=== PATIENT | male | born 1960 | race Caucasian/White ===

== ENCOUNTER 2016-10-24 08:24 | Inpatient (IN) | payer MEDICARE, MEDICAID ==
--- NOTE | 2016-10-24 08:42 | ED Physician Chart ---
Chief Complaint/HPI - Patient Information Date Seen:: 10/24/16 Time Seen:: 08:35 Chief Complaint:: Pt is intoxicated with alcohol. History of Present Illness:: Pt was brought in by ambulance for the above reason. Pt has abrasion on L cheek. Pt otherwise appears to be in no distress. Pt breathes comfortably but with strong alcoholic breaths. Pt denies any bodily pain or other injuries. Pt speaks clearly but is uncooperative; thus, H & P are limited. Allergies:: Allergies Allergy/AdvReac Type Severity Reaction Status Date / Time Penicillins Allergy Verified 10/24/16 08:35 Vitals:: see Nurse Note. Historian:: Patient Family MD/PCP:: unknown LMP:: N/A Review:: Nurse's Note Reviewed Review of Systems - Review of Systems General/Constitutional: Other (Pt does not cooperate for ROS.) Past Medical History - Past Medical History Past Medical History: No significant medical hx Family History: Other (Pt does not) Social History: Alcohol (h/o alcoholism.), Other (Pt does not cooperate to provide info on SHx.) Surgical History: other (Pt does not cooperate to provide info on Surgical Hx.) Family Medical History - Family Member Mother History Unknown: Yes Physical Exam - Physical Examination General/Constitutional: Awake, Well-developed, well-nourished, Alert, No distress Other Gen/Cons comments:: Breathes comfortably with strong alcoholic breath, speaks clearly, but is not cooperative. Head: Atraumatic Other Head comments:: except there is an approx 2x3 cm abrasive area on L cheek. Nontender. No gross deformity. no open wound or active bleeding. Eyes: Lids, conjuctiva normal, PERRL, EOMI Skin: No lymphadenopathy Other Skin comments:: see also Head exam above. ENMT: External ears, nose nl, Nasal exam nl, Oropharynx nl Neck: Nontender, Full ROM w/o pain, No nuchal rigidity, No mass, No stridor Respiratory: Nl effort/Exclusion, Clear to Auscultation, No Wheeze/Rhonchi/Rales Cardio Vascular: No murmur, gallop, rubs Other Cardio Vascular comments:: Regular rhythm with mild tachycardia. GI: No tenderness/rebounding/guarding, No organomegaly, No hernia, Normal BS's, Nondistended, No mass/bruits, No McBurney tenderness Other GI comments:: Abdomen is soft. Extremities: No tenderness or effusion, Full ROM, normal strength in all extremities, No edema, Normal digits & nails Neuro/Psych: Alert/oriented (knows his name. He is uncooperative.) Other Neuro/Psych comments:: Spontaneous movements noticed in all 4 extremities. Pt does not cooperate for full neurological exam. Labs/Radiology/EKG Results - Lab Results Results: Laboratory Tests 10/24/16 10/24/16 10/24/16 08:56 08:56 08:56 WBC 18.0 H RBC 5.93 H Hgb 17.3 Hct 52.2 H MCV 88.0 MCH 29.2 MCHC Differential 33.2 RDW 14.3 Plt Count 281 MPV 7.7 Neutrophils (Manual) 83 H Lymphocytes 6 L Monocytes 11 H Platelet Estimate ADEQUATE Platelet Morphology NORMAL RBC Morph Micro Appear NORMAL PT 9.3 L INR 0.94 PTT (Actin FS) 23.0 L Sodium 139 Potassium 3.9 Chloride 102 Carbon Dioxide 25.7 Anion Gap 15.2 BUN 7 Creatinine 0.9 Est GFR ( Amer) > 60.0 Est GFR (Non-Af Amer) > 60.0 BUN/Creatinine Ratio 7.8 Glucose 153 H Whole Bld Lactic Acid Calcium 9.4 Total Bilirubin 0.4 AST 49 H ALT 30 Alkaline Phosphatase 100 Total Protein 8.0 Albumin 4.7 Globulin 3.3 Albumin/Globulin Ratio 1.4 Urine Source Urine Color Urine Clarity Urine pH Ur Specific [place] Urine Protein Urine Glucose (UA) Urine Ketones Urine Blood Urine Nitrate Urine Bilirubin Urine Urobilinogen Ur Leukocyte Esterase Urine RBC Urine WBC Ur Epithelial Cells Urine Bacteria Hyaline Casts Fine Granular Casts Ethyl Alcohol 333 H 10/24/16 10/24/16 10:15 11:05 WBC RBC Hgb Hct MCV MCH MCHC Differential RDW Plt Count MPV Neutrophils (Manual) Lymphocytes Monocytes Platelet Estimate Platelet Morphology RBC Morph Micro Appear PT INR PTT (Actin FS) Sodium Potassium Chloride Carbon Dioxide Anion Gap BUN Creatinine Est GFR ( Amer) Est GFR (Non-Af Amer) BUN/Creatinine Ratio Glucose Whole Bld Lactic Acid 4.38 H* Calcium Total Bilirubin AST ALT Alkaline Phosphatase Total Protein Albumin Globulin Albumin/Globulin Ratio Urine Source CLEAN C Urine Color YELLOW Urine Clarity CLEAR Urine pH 5.5 Ur Specific [place] 1.025 Urine Protein 100 H Urine Glucose (UA) NEGATIVE Urine Ketones 15 H Urine Blood MODERATE H Urine Nitrate NEGATIVE Urine Bilirubin NEGATIVE Urine Urobilinogen 0.2 Ur Leukocyte Esterase NEGATIVE Urine RBC 0-2 H Urine WBC 0-2 Ur Epithelial Cells OCCASIONAL Urine Bacteria OCCASIONAL Hyaline Casts 0-2 H Fine Granular Casts 0-2 H Ethyl Alcohol Laboratory Last Values WBC 18.0 Th/cmm (4.8-10.8) H 10/24/16 08:56 RBC 5.93 Mil/cmm (4.30-5.70) H 10/24/16 08:56 Hgb 17.3 gm/dL (13.2-17.3) 10/24/16 08:56 Hct 52.2 % (39.0-49.0) H 10/24/16 08:56 MCV 88.0 fl (80-99) 10/24/16 08:56 MCH 29.2 pg (26.0-30.0) 10/24/16 08:56 MCHC Differential 33.2 pg (28.0-36.0) 10/24/16 08:56 RDW 14.3 % (11.5-20.0) 10/24/16 08:56 Plt Count 281 Th/cmm (150-400) 10/24/16 08:56 MPV 7.7 fl 10/24/16 08:56 Neutrophils (Manual) 83 % (40-80) H 10/24/16 08:56 Lymphocytes 6 % (20-50) L 10/24/16 08:56 Monocytes 11 % (2-10) H 10/24/16 08:56 Platelet Estimate ADEQUATE (NORMAL) 10/24/16 08:56 Platelet Morphology NORMAL (NORMAL) 10/24/16 08:56 RBC Morph Micro Appear NORMAL (NORMAL) 10/24/16 08:56 PT 9.3 SECONDS (9.5-11.5) L 10/24/16 08:56 INR 0.94 (0.5-1.4) 10/24/16 08:56 PTT (Actin FS) 23.0 SECONDS (26.0-38.0) L 10/24/16 08:56 Specimen Source Arterial 10/24/16 13:55 Sample Site Right Radial 10/24/16 13:55 pH 7.44 (7.35-7.45) 10/24/16 13:55 pCO2 36.0 mmHg (35.0-45.0) 10/24/16 13:55 pO2 81.0 mmHg (80.0-100.0) 10/24/16 13:55 HCO3 24.5 mmol/L (20.0-26.0) 10/24/16 13:55 Base Excess 0.6 mmol/L (-3.0-3.0) 10/24/16 13:55 O2 Saturation 96.0 % (92.0-100.0) 10/24/16 13:55 Alonso Test Positive 10/24/16 13:55 Vent Rate NA 10/24/16 13:55 Inspired O2 21 10/24/16 13:55 Tidal Volume NA 10/24/16 13:55 PEEP NA 10/24/16 13:55 Pressure (ins/psv/peep) NA 10/24/16 13:55 Critical Value LZHANG 10/24/16 13:55 Sodium 139 mEq/L (136-145) 10/24/16 08:56 Potassium 3.9 mEq/L (3.5-5.1) 10/24/16 08:56 Chloride 102 mEq/L (98-107) 10/24/16 08:56 Carbon Dioxide 25.7 mEq/L (21.0-31.0) 10/24/16 08:56 Anion Gap 15.2 (7.0-16.0) 10/24/16 08:56 BUN 7 mg/dL (7-25) 10/24/16 08:56 Creatinine 0.9 mg/dL (0.7-1.3) 10/24/16 08:56 Est GFR ( Amer) > 60.0 ml/min (>90) 10/24/16 08:56 Est GFR (Non-Af Amer) > 60.0 ml/min 10/24/16 08:56 BUN/Creatinine Ratio 7.8 10/24/16 08:56 Glucose 153 mg/dL (70-105) H 10/24/16 08:56 Whole Bld Lactic Acid 4.34 mmol/L (0.60-2.00) H* 10/24/16 13:17 Calcium 9.4 mg/dL (8.6-10.3) 10/24/16 08:56 Total Bilirubin 0.4 mg/dL (0.3-1.0) 10/24/16 08:56 AST 49 U/L (13-39) H 10/24/16 08:56 ALT 30 U/L (7-52) 10/24/16 08:56 Alkaline Phosphatase 100 U/L (34-104) 10/24/16 08:56 Total Protein 8.0 gm/dL (6.0-8.3) 10/24/16 08:56 Albumin 4.7 gm/dL (4.2-5.5) 10/24/16 08:56 Globulin 3.3 gm/dL 10/24/16 08:56 Albumin/Globulin Ratio 1.4 (1.0-1.8) 10/24/16 08:56 Urine Source CLEAN C 10/24/16 11:05 Urine Color YELLOW 10/24/16 11:05 Urine Clarity CLEAR (CLEAR) 10/24/16 11:05 Urine pH 5.5 10/24/16 11:05 Ur Specific [place] 1.025 (1.005-1.030) 10/24/16 11:05 Urine Protein 100 mg/dL (NEGATIVE) H 10/24/16 11:05 Urine Glucose (UA) NEGATIVE mg/dL (NEGATIVE) 10/24/16 11:05 Urine Ketones 15 mg/dL (NEGATIVE) H 10/24/16 11:05 Urine Blood MODERATE (NEGATIVE) H 10/24/16 11:05 Urine Nitrate NEGATIVE (NEGATIVE) 10/24/16 11:05 Urine Bilirubin NEGATIVE (NEGATIVE) 10/24/16 11:05 Urine Urobilinogen 0.2 E.U./dL (0.2 - 1.0) 10/24/16 11:05 Ur Leukocyte Esterase NEGATIVE (NEGATIVE) 10/24/16 11:05 Urine RBC 0-2 /hpf (0-5) H 10/24/16 11:05 Urine WBC 0-2 /hpf (0-5) 10/24/16 11:05 Ur Epithelial Cells OCCASIONAL /lpf (FEW) 10/24/16 11:05 Urine Bacteria OCCASIONAL /hpf (NONE SEEN) 10/24/16 11:05 Hyaline Casts 0-2 /lpf (0-2) H 10/24/16 11:05 Fine Granular Casts 0-2 /lpf (NONE SEEN) H 10/24/16 11:05 Ethyl Alcohol 333 mg/dL (0-10) H 10/24/16 08:56 - Radiology Results Results: Facial bone CT without contrast: Mildly displaced nasal bone fracture. Official report per Dr. Enoch Munoz, radiologist. PCXR: Based on my interpretation, NAD. Official report is pending. - EKG Interpretations EKG Time:: 13:44 Rhythm: Sinus tachycardia Rate: 109 Comments:: Probable LAE. No acute ischemic changes. ED Septic Shock - . Is Septic Shock (SBP<90, OR Lactate>4 mmol\L) present?: No - <6hrs of presentation: Assessment of Lungs: Lung CTA bilateral Assessment of Heart: Documented in PE Capillary refill evaluation: Capillary refill < 2 secs Skin Exam: Warm, Good Turgur, No Pallor, No Diaphoresis, No Mottling, No Edema, No Erythema - Peripheral pulse evaluation Femoral Peripheral pulse evaluation-quality: Symmetrical Carotid Peripheral pulse evaluation-quality: +2 (normal), Symmetrical, Documented in PE Reassessment (Disposition) - Reassessment Reassessment:: 1005 Pt has been repeatedly evaluated. Pt remains stable. Lab results just became available. Pt has leukocytosis of 18K. Further work up is to be done: CXR , urinalysis. 1030 Pt remains stable but appears to be anxious. Pt now related that he has been taking clonidine with last dose yesterday. Pt is to be given clonidine 0.1 mg po. 1120 Additional lab results just became available that revealed elevated lactic acid level. Will increase intravenous fluid rate. Blood culture ordered. Pt remains stable and comfortable. Available lab and radiological findings have been reviewed with pt. Management plan has been discussed. 1238 Case was discussed with Dr. Davila with H & P, CXR, CT and pertinent lab findings, etc. reviewed. He concurred with present management. Pt is to be admitted to [facility] under his care. Reassessment Condition:: Improved - Diagnosis Diagnosis:: Alcohol intoxication with associated elevated lactic acid level. Stable. Pt continues to receive IV hydration. Leukocytosis of uncertain etiology. Doubt infectious etiology. Pt's abrupt discontinuation of clonidine causes increased sympathetic drive, leading to demargination of leukocytes. Nasal bone fracture with associated L facial abrasion, stable. - Patient Disposition Admitted to:: Telemetry Admitting Medical Physician:: Juan Daniel Davila Time:: 13:00 Condition at Disposition:: Stable, Improved
[2016-10-24] MEDS ORDERED: Multivitamin Inj 10 ML, Thiamine HCL 100 MG, Magnesium Sulfate 2 GM, Folic Acid 1 MG in... IV ONE (08:46)
[2016-10-24] MEDS ORDERED: Triple Antibiotic 0.94 gm Pkt TP STA (09:00)
[2016-10-24] MEDS ORDERED: Thiamine 100 mg/mL 2mL Vial ONE ×2 (09:01→13:39)
[2016-10-24] MEDS ORDERED: Magnesium Sulfate 1 gm/2 mL 2mL Vial IV ONE ×2 (09:02→13:40)
[2016-10-24] MEDS ORDERED: Multivitamin Inj 10 mL Vial IV ONE ×2 (09:02→13:40)
[2016-10-24 09:04] LABS: HEMATOCRIT 52.2 % (39.0-49.0); HEMOGLOBIN 17.3 gm/dL (13.2-17.3); MEAN CORPUSCULAR HEMOGLOBIN 29.2 pg (26.0-30.0); MEAN CORPUSCULAR HGB CONC 33.2 pg (28.0-36.0); MEAN PLATELET VOLUME 7.7 fl; PLATELET COUNT 281 Th/cmm (150-400); RED BLOOD COUNT 5.93 Mil/cmm (4.30-5.70); RED CELL DISTRIBUTION WIDTH 14.3 % (11.5-20.0)
[2016-10-24 09:16] LABS: INR 0.94 (0.5-1.4); PROTHROMBIN TIME (TEST) 9.3 SECONDS (9.5-11.5)
[2016-10-24 09:19] LABS: ALB/GLOB RATIO 1.4 (1.0-1.8); ALKALINE PHOSPHATASE 100 U/L (34-104); ANION GAP 15.2 (7.0-16.0); BILIRUBIN,TOTAL 0.4 mg/dL (0.3-1.0); BUN - UREA NITROGEN 7 mg/dL (7-25); BUN/CREATININE RATIO 7.8; CALCIUM SERUM 9.4 mg/dL (8.6-10.3); CARBON DIOXIDE 25.7 mEq/L (21.0-31.0); CHLORIDE 102 mEq/L (98-107); CREATININE - SERUM 0.9 mg/dL (0.7-1.3); GLUCOSE 153 mg/dL (70-105); POTASSIUM SERUM 3.9 mEq/L (3.5-5.1); SGOT 49 U/L (13-39); SGPT/ALT 30 U/L (7-52); SODIUM SERUM 139 mEq/L (136-145)
[2016-10-24] MEDS ORDERED: Bacitracin pkt 1 gm Pkt TP ONE (09:19)
[2016-10-24 09:55] LABS: NEUTROPHILS 83 % (40-80); TOTAL CELLS COUNTED 100
[2016-10-24 09:56] LABS: PLATELET ESTIMATE ADEQUATE (NORMAL); PLATELET MORPHOLOGY NORMAL (NORMAL)
--- NOTE | 2016-10-24 10:02 | Diagnostic Imaging Report ---
CT scan facial bones HISTORY: Pain, trauma Total DLP equals 419 CTDI equals 19.1 Axial sections were obtained through the facial bones. Additional sagittal and coronal reformatted images are provided. There is retention of normal bony margins about the orbits. No fractures. The zygomatic arches are intact. The pterygoid plates are intact. There is a mildly displaced fracture of the distal nasal bones. Normal aeration of the paranasal sinuses. IMPRESSION: 1. Mildly displaced nasal bone fracture
[2016-10-24] MEDS ORDERED: Levofloxacin 500mg/100mL 500 MG in Premix Fluid 1 BAG IV ONE (11:34)
[2016-10-24 11:37] LABS: URINE BILIRUBIN NEGATIVE (NEGATIVE); URINE BLOOD MODERATE (NEGATIVE); URINE COLOR YELLOW; URINE GLUCOSE (UA) NEGATIVE (NEGATIVE); URINE KETONE 15 mg/dL (NEGATIVE); URINE PH 5.5; URINE PROTEIN 100 mg/dL (NEGATIVE); URINE UROBILINOGEN 0.2 E.U./dL (0.2 - 1.0)
[2016-10-24 11:38] LABS: URINE BACTERIA OCCASIONAL /hpf (NONE SEEN); URINE EPITHELIAL CELLS OCCASIONAL /lpf (FEW); URINE FINE GRANULAR CAST 0-2 /lpf (NONE SEEN); URINE HYALINE CAST 0-2 /lpf (0-2); URINE RBC 0-2 /hpf (0-5); URINE WBC 0-2 /hpf (0-5)
[2016-10-24] MEDS ORDERED: Levofloxacin 500mg/100mL 500 MG/100 ML BAG IV ONE (11:45)
[2016-10-24] MEDS ORDERED: Magnesium Hydroxide (MOM) 30 mL UDC PO PRN (12:52)
[2016-10-24] MEDS ORDERED: Maalox 30 mL Cup PO PRN (12:52)
[2016-10-24] MEDS: Multivitamin Inj 10 ML, Thiamine HCL 100 MG, Magnesium Sulfate 2 GM, Folic Acid 1 MG in... IV SCH (13:45)
[2016-10-24 14:17] LABS: ABG SOURCE Arterial; ALLEN TEST Positive; BE(B) 0.6 mmol/L (-3.0-3.0); HCO3 24.5 mmol/L (20.0-26.0); pH 7.44 (7.35-7.45)
[2016-10-24 14:18] LABS: FIO2 21
[2016-10-24] MEDS: Levofloxacin 500mg/100mL 500 MG/100 ML BAG IV SCH (14:22)
[2016-10-24] MEDS ORDERED: Hydrocodone/APAP 5mg/325mg Tab ONE ×2 (14:24→18:34)
[2016-10-24] MEDS: Hydrocodone/APAP 5mg/325mg Tab PO PRN ×2 (14:24→18:40)
--- NOTE | 2016-10-24 23:13 | Admit Criteria Form ---
Admit Criteria Forms - Admit Criteria Diagnosis: SUBSTANCE ABUSE Clinical Indications for Admission to Inpatient Care (Place 'X' for any and all applicable criteria): Admission is indicated due to ANY ONE of the following(1)(2)(3)(4)(5): [ ]I. Delirium due to alcohol or sedative A withdrawal B ( Also use Delirium Criteria as appropriate)1,6,7 [ ]II. Alcohol or sedative withdrawal with high-risk indicator as manifested by ALL of the following1,3,6,7 [ ]a) Signs of withdrawal as indicated by ANY ONE of the following: [ ]i) Heart rate greater than 100 beats per minute [ ]ii) Nausea or vomiting [ ]iii) Other physical signs of alcohol or sedative withdrawal [ ]iv) Tremor [ ](v) Increased perspiration [ ]b) Elevated risk due to a historical or comorbid factor as indicated by ANY ONE of the following: [ ]i) History of delirium due to alcohol or sedative withdrawal [ ]ii) History of repetitive seizures due to alcohol or sedative withdrawal C [ ]iii) Intrinsic seizure disorder (epilepsy) [ ]iv) [ ]v) Comorbid medical condition that can be dangerously destabilized by alcohol or sedative withdrawal (eg, severe cardiac disease) [ ]III. Severe alcohol or sedative withdrawal that is unmanageable at lower level of care, as manifested by ALL of the following1,3,6,7 [ ]a) Marked signs of withdrawal as indicated by ANY ONE of the following: [ ]i) Heart rate greater than 120 beats per minute [ ]ii) Vomiting [ ]iii) Grossly visible tremor [ ]iv) Profuse perspiration [ ]v) Temperature greater than 38.3 degrees C (101 degrees F) [ ]vi) Other marked physical signs of alcohol or sedative withdrawal [ ]b) Signs of withdrawal which require inpatient treatment as indicated by ANY ONE of the following: [ ]i) Inadequate response to pharmacotherapy in emergency department or other appropriate lower level of care [ ]ii) Lower level of care not feasible or appropriate (eg, unavailable or inappropriate to patient condition or treatment history) [ ]IV. Severely complicated opioid withdrawal that requires [id number] care as manifested by ALL of the following 1,4,7,11 [ ]a) Vomiting or diarrhea due to opioid withdrawal [ ]b) Marked dehydration or electrolyte abnormality that cannot be corrected (to near normal) in an emergency department or other ambulatory setting (eg, serum K<2.5 mEq/L , serum Na <130 mEq/L [ X]V. Acute toxicity or instability from substance use requiring inpatient care (eg, altered mental status, respiratory depression) that has had inadequate response to, or is judged inappropriate for, treatment at lower level of care (eg, emergency department, observation care) [ ]. Other inpatient medical or psychiatric care is needed due to risk or comorbidity as indicated by ALL of the following(18): [ ]a) Treatment is needed because of patient risk due to ANY ONE of the following: [ ]i) Medical condition (eg, severe cardiac disease) that requires 24-hour monitoring and treatment due to danger of destabilization by alcohol or sedative withdrawal is present [ ]ii) Imminent danger to self is present due to ANY ONE of the following(19)(20)(21): [ ]1) Imminent risk for recurrence of Suicide attempt or act of serious Harm to self is present as indicated by ALL of the following: [ ]A. There has been very recent Suicide attempt or deliberate act of serious Harm to self. [ ]B. There has not been Sufficient relief of the factors that precipitated the attempt or act. [ ]2) Current plan for suicide or serious Harm to self is present. [ ]3) Command auditory hallucinations for suicide or serious Harm to self are present. [ ]4) Patient has persistent Thoughts of suicide or serious Harm to self that cannot be adequately monitored at lower level of care due to ANY ONE of the following[E]: [ ]A. Insufficient behavioral care is available to meet patient needs (such as required provider or lower level facility is not available). [ ]B. Patient characteristics such as high impulsivity or unreliability are present. [ ]C. Environment does not support recovery. [ ]D. Ready access to lethal means [ ]iii) Imminent danger to others is present due to ANY ONE of the following(19)(23)(24): [ ]1) Imminent risk for recurrence of attempt to seriously Harm another is present as indicated by ALL of the following: [ ]A. There has been very recent attempt to seriously Harm another. [ ]B. There has not been Sufficient relief of factors that precipitated the attempt or act. [ ]2) Current plan for homicide or serious Harm to another is present. [ ]3) Command auditory hallucinations or paranoid delusions contributing to risk for homicide or serious Harm to another are present. [ ]4) Patient has persistent thoughts of homicide or serious Harm to another that cannot be adequately monitored at lower level of care because of ANY ONE of the following[E]: [ ]A. Insufficient behavioral care is available to meet patient needs (such as required provider or lower level facility is not available). [ ]B. High impulsivity or unreliability is present. [ ]C. Environment does not support recovery. [ ]D. Ready access to lethal means [ ]iv) Severe dysfunction in daily living related to substance use disorder as indicated by ANY ONE of the following(33): [ ]a) Extreme deterioration in social interactions (eg , threatening behaviors with little or no provocation) [ ]b) Complete withdrawal from all social interactions [ ]c) Complete neglect of self-care with associated impairment in physical status [ ]d) Extreme disruption in vegetative function (eg, life-sustaining functions such as eating) [ ]e) Complete inability to maintain any appropriate aspect of personal responsibility in any adult roles (eg, occupational, parental ) [ ]v) Other emotional, behavioral, or cognitive symptoms of sufficient severity to preclude ability to engage in recovery without 24-hour monitoring and treatment are present. [ ]vi) Patient requires monitoring due to substance use in combination with medical, psychiatric, or environmental factors that prevent adequate management at lower level of care as indicated by ALL of the following: [ ]1) Significant substance use effects, medical conditions, or psychiatric comorbidities are present as indicated by ANY ONE of the following [ ]A. Substance toxicity or withdrawal requires medical monitoring. [ ]B. Medical comorbidity requires medical monitoring for destabilization due to alcohol or sedative withdrawal. [ ]C. Emotional, behavioral, or cognitive symptoms of sufficient severity to limit or preclude ability to engage in treatment are present. [ ]2) Conditions, barriers, or environmental factors preventing treatment at lower level of care are present as indicated by ANY ONE of the following: [ ]A. Psychiatric comorbidity or opposition to treatment requires 24-hour setting to ensure adherence with medical treatment or adequate motivating interventions. [ ]B. Severe behavioral problems (eg, escalating relapse behaviors, acute psychiatric or substance use crisis, inability to recognize signs and symptoms of relapse ) require 24-hour setting for relapse prevention.[F] [ ]C. Living environment outside of 24-hour setting prevents recovery (eg, abuse, victimization, patient inability to cope). [ ]b Treatment situation and needs are appropriate for inpatient level ( instead of using lower level of care) as indicated by ANY ONE of the following( 25)(26)(27): [ ]i) Patient is unwilling to participate voluntarily and requires treatment (eg, legal commitment) in involuntary unit.(23) [ ]ii) Voluntary treatment at lower level is not feasible (eg, lower level care unavailable or inappropriate for patient condition). [ ]iii) Physical restraint, seclusion, or other involuntary control is needed (eg, actively violent patient for whom treatment in an involuntary unit is deemed necessary in accord with applicable medical and legal criteria).(23) [ ]iv) [id number] medical or nursing care to address symptoms and initiate interventions is required; specific need is identified. Extended stay beyond goal length of stay may be needed for: [ ]a) Onset of delirium [ ]b) Recurrent seizures [ ]c) Persistent severe alcohol or sedative withdrawal [ ]d) Persistent dangerous behavior The original [facility] content created by [employer] has been revised. The portions of the content which have been revised are identified through the use of italic text or in bold, and [facility] has neither reviewed nor approved the modified material. All other unmodified content is copyright [facility]. Please see references footnoted in the original [facility] edition 2016 Admit Criteria Met?: Yes
[2016-10-25] MEDS ORDERED: Hydrocodone/APAP 5mg/325mg Tab ONE ×2 (00:45→11:24)
[2016-10-25] MEDS: Hydrocodone/APAP 5mg/325mg Tab PO PRN ×4 (00:47→12:13)
[2016-10-25 05:04] LABS: % BASOPHILS 0.1 % (0.0-2.0); % EOSINOPHILS 0.7 % (0.0-5.0); % LYMPHOCYTES 18.2 % (20.0-50.0); % MONOCYTES 9.5 % (2.0-10.0); % NEUTROPHILS 71.5 % (40.0-80.0); MEAN CELL VOLUME 87.4 fl (80-99); MEAN CORPUSCULAR HEMOGLOBIN 30.2 pg (26.0-30.0); MEAN CORPUSCULAR HGB CONC 34.6 pg (28.0-36.0); MEAN PLATELET VOLUME 7.9 fl; NEUTROPHILE ABSOLUTE 8.7 Th/cmm (1.8-8.0); RED BLOOD COUNT 4.62 Mil/cmm (4.30-5.70); RED CELL DISTRIBUTION WIDTH 14.1 % (11.5-20.0)
[2016-10-25 05:11] LABS: HEMATOCRIT 40.3 % (39.0-49.0); PLATELET COUNT 219 Th/cmm (150-400); WHITE BLOOD COUNT 12.2 Th/cmm (4.8-10.8)
[2016-10-25 05:15] LABS: ANION GAP 7.8 (7.0-16.0); BUN - UREA NITROGEN 8 mg/dL (7-25); BUN/CREATININE RATIO 11.4; CALCIUM SERUM 8.7 mg/dL (8.6-10.3); CARBON DIOXIDE 28.2 mEq/L (21.0-31.0); CHLORIDE 104 mEq/L (98-107); CREATININE - SERUM 0.7 mg/dL (0.7-1.3); GLUCOSE 126 mg/dL (70-105); SODIUM SERUM 136 mEq/L (136-145)
--- NOTE | 2016-10-25 12:07 | Diagnostic Imaging Report ---
Portable chest x-ray History: Cough Allowing for portable technique the heart size is normal. No focal pulmonary parenchymal processes. No hilar or mediastinal abnormalities. Impression: No acute abnormalities.
[2016-10-25] MEDS ORDERED: Levofloxacin 500mg/100mL 500 MG/100 ML BAG IV ONE (13:20)
[2016-10-25] MEDS: Levofloxacin 500mg/100mL 500 MG/100 ML BAG IV SCH (14:07)
[2016-10-25] MEDS ORDERED: Thiamine 100 mg/mL 2mL Vial ONE (14:09)
[2016-10-25] MEDS ORDERED: Magnesium Sulfate 1 gm/2 mL 2mL Vial IV ONE (14:10)
[2016-10-25] MEDS ORDERED: Multivitamin Inj 10 mL Vial IV ONE (14:11)
[2016-10-25] MEDS: Hydrocodone/APAP 10 mg/325 mg Tab PO PRN (21:06)
--- NOTE | 2016-10-26 00:52 | History & Physical ---
CHIEF COMPLAINT: Alcohol intoxication. HISTORY OF PRESENT ILLNESS: The patient is a 56-year-old white male brought in by ambulance for alcohol intoxication. The patient has abrasion on left cheek. The patient is in no acute distress. The patient in the ER, denied any abdominal pain ____. ALLERGIES: ____. REVIEW OF SYSTEMS: See History of Present Illness. PAST MEDICAL HISTORY: Alcoholism. PAST SURGICAL HISTORY: Negative. SOCIAL HISTORY: History of alcohol abuse, history of tobacco abuse. Denies IV drug use. PHYSICAL EXAMINATION: GENERAL: The patient is awake, alert, nontoxic in appearance. VITAL SIGNS: On admission, temperature 97.7, pulse 115, blood pressure ____, respiratory rate 22, O2 saturation ____% on room air. HEENT: Atraumatic. A 2.3-cm abrasion on left cheek, nontender. Extraocular movements are intact. Oropharynx is clear. NECK: Supple. No thyromegaly. No lymphadenopathy. RESPIRATORY: Clear. No wheezes, rales or rhonchi. CARDIOVASCULAR: S1, S2. Tachycardic. GASTROINTESTINAL: Soft, nontender ____. GENITOURINARY: No CVA tenderness, no suprapubic tenderness. BACK: No midline tenderness. EXTREMITIES: Equal pulses bilaterally. No cyanosis or clubbing. PSYCHIATRIC: Negative. NEUROLOGIC: Cranial nerves II through XII are intact. Extraocular movements are intact ____. LABORATORY DATA: On admission as follows: Hematology: WBC 18.0, hemoglobin ____, platelet count 281, 83% neutrophils, 6% lymphocytes, 11% monocytes. PT 9.3, INR ____, PTT 23. ABG within normal limits. Chemistry: Sodium 139, potassium 3.9, chloride 102, bicarbonate 25, anion gap 15, BUN 7, creatinine 0.9, GFR more than 60, glucose 153, lactic acid 4.38, calcium 9.4, total bilirubin 0.4, AST 49, ALT 30, alkaline phosphatase 100. C-reactive protein 0.8, total protein 8.0, albumin 4.7, globulin 3.3. Urinalysis today shows 100 protein, 50 ketones, moderate blood, alcohol level 333. RADIOLOGY: CT of maxillofacial shows mildly displaced nasal bone fracture. Chest x-ray, no acute abnormality demonstrated. IMPRESSION: 1. Alcohol intoxication. 2. Delirium tremens. 3. Leukocytosis. 4. Hyperglycemia. 5. Transaminitis. PLAN: The patient admitted to Telemetry Unit, seen by Dr. Kelli Davila. We will obtain labs and consultations. JOB# [id number]
[2016-10-26] MEDS: Hydrocodone/APAP 10 mg/325 mg Tab PO PRN ×2 (05:36→13:23)
[2016-10-26 06:22] LABS: % BASOPHILS 0.1 % (0.0-2.0); % EOSINOPHILS 1.2 % (0.0-5.0); % LYMPHOCYTES 18.4 % (20.0-50.0); % MONOCYTES 8.1 % (2.0-10.0); % NEUTROPHILS 72.2 % (40.0-80.0); HEMATOCRIT 39.1 % (39.0-49.0); HEMOGLOBIN 13.6 gm/dL (13.2-17.3); MEAN CORPUSCULAR HEMOGLOBIN 30.6 pg (26.0-30.0); MEAN CORPUSCULAR HGB CONC 34.7 pg (28.0-36.0); MEAN PLATELET VOLUME 7.6 fl; NEUTROPHILE ABSOLUTE 6.5 Th/cmm (1.8-8.0); PLATELET COUNT 216 Th/cmm (150-400); RED BLOOD COUNT 4.44 Mil/cmm (4.30-5.70); RED CELL DISTRIBUTION WIDTH 14.1 % (11.5-20.0)
[2016-10-26 06:28] LABS: WHITE BLOOD COUNT 8.9 Th/cmm (4.8-10.8)
[2016-10-26 06:41] LABS: ANION GAP 5.5 (7.0-16.0); BUN - UREA NITROGEN 9 mg/dL (7-25); BUN/CREATININE RATIO 11.3; CARBON DIOXIDE 30.2 mEq/L (21.0-31.0); CHLORIDE 103 mEq/L (98-107); CREATININE - SERUM 0.8 mg/dL (0.7-1.3); GLUCOSE 116 mg/dL (70-105); POTASSIUM SERUM 3.7 mEq/L (3.5-5.1); SODIUM SERUM 135 mEq/L (136-145)
[2016-10-26] MEDS: Hydrocodone/APAP 5mg/325mg Tab PO PRN (09:45)
[2016-10-26] MEDS ORDERED: Pneumococcal Vaccine 0.5 mL Vial IM ONE (11:00)
[2016-10-26] MEDS ORDERED: Sodium Chloride 0.9% 1,000 ML IV SCH (13:15)
[2016-10-26] MEDS: Levofloxacin 500mg/100mL 500 MG/100 ML BAG IV SCH (13:24)
[2016-10-26] MEDS: Multivitamin Inj 10 ML, Thiamine HCL 100 MG, Magnesium Sulfate 2 GM, Folic Acid 1 MG in... IV SCH ×2 (13:26→13:30)
[2016-10-27] MEDS: Hydrocodone/APAP 10 mg/325 mg Tab PO PRN (01:11)
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
--- NOTE | 2016-10-27 07:41 | Consultation ---
Covering for Dr. Kay. IDENTIFYING INFORMATION: The patient is a 56-year-old male. HISTORY OF PRESENT ILLNESS: I was asked to see this patient who was admitted because of acute alcohol intoxication. He is already put on a regimen for detox and thiamin, multivitamin. I added folic acid already. The patient himself was not a great historian. He reports he drinks occasionally. He denies drug use. He reported that he has a history of schizoaffective disorder, bipolar disorder. He has a history of hearing voices. However, he currently denies any current intent to harm himself or anybody. Denies any auditory or visual hallucination, but has a history of. PAST PSYCHIATRIC HISTORY: The patient has been diagnosed with bipolar disorder and schizoaffective for the past 20 years. He has many prior hospitalizations. He was unable to tell me when the last time he was hospitalized. He said he has 5 prior suicide attempts by overdose, cutting his wrists. He was unable to tell me which hospitals he went to. MEDICAL HISTORY: Deferred to the medical doctor. He denies having a seizure in relation to his withdrawal from alcohol. FAMILY AND SOCIAL HISTORY: The patient reports he lives in a [place]. He is now . He has 2 children, a boy and a girl. The boy is 30 years of age. The girl is 28 years of age. He reports that he has some college education. He is on disability because of his mental illness. He denies family psychotic disorder; however, he is not a very reliable historian. MENTAL STATUS EXAMINATION: The patient is appropriately dressed, not well groomed. He was somewhat sedated. He was able to tell me this is October 2016, but not anymore. He was minimizing his use of alcohol, he said only have 2 bottles of vodka, does not drink very often. He reports that he is not sleeping or eating well. He is not taking his medication, Latuda and BuSpar. He said he is also on Klonopin because he has anxiety disorder. He denies any current intent to harm himself or anybody. Denies any hallucinations or paranoia. Long-term memory is good for his age. Recent memory is poor. He is not sure how much he has been drinking and what led to him coming here. Immediate memory is poor, unable to concentrate enough to give me information. Insight and judgment are impaired. IMPRESSION: AXIS I: Bipolar disorder, depressed, chronic alcohol dependence. MEDICAL DIAGNOSES: Deferred to the medical doctor. RECOMMENDATIONS: I would recommend to start Latuda at 40 mg a day and BuSpar 30 mg twice a day. He is already on Klonopin. I would recommend to transfer to [facility] when medically clear. Thank you very much for allowing me to participate in the care of this most interesting gentleman. JOB# [id number]
[2016-10-27] MEDS: Hydrocodone/APAP 5mg/325mg Tab PO PRN (13:29)
[2016-10-27] MEDS: Levofloxacin 500mg/100mL 500 MG/100 ML BAG IV SCH (13:30)
[2016-10-27] MEDS: Multivitamin Inj 10 ML, Thiamine HCL 100 MG, Magnesium Sulfate 2 GM, Folic Acid 1 MG in... IV SCH (13:31)
[2016-10-27 14:43] LABS: % BASOPHILS 0.8 % (0.0-2.0); % EOSINOPHILS 1.7 % (0.0-5.0); % LYMPHOCYTES 18.6 % (20.0-50.0); % MONOCYTES 8.2 % (2.0-10.0); % NEUTROPHILS 70.7 % (40.0-80.0); ANION GAP 5.3 (7.0-16.0); BUN - UREA NITROGEN 9 mg/dL (7-25); CALCIUM SERUM 8.9 mg/dL (8.6-10.3); CARBON DIOXIDE 29.5 mEq/L (21.0-31.0); CHLORIDE 105 mEq/L (98-107); CREATININE - SERUM 0.9 mg/dL (0.7-1.3); GLUCOSE 133 mg/dL (70-105); HEMATOCRIT 40.9 % (39.0-49.0); HEMOGLOBIN 13.8 gm/dL (13.2-17.3); MEAN CORPUSCULAR HEMOGLOBIN 29.4 pg (26.0-30.0); MEAN CORPUSCULAR HGB CONC 33.8 pg (28.0-36.0); NEUTROPHILE ABSOLUTE 5.1 Th/cmm (1.8-8.0); PLATELET COUNT 244 Th/cmm (150-400); POTASSIUM SERUM 3.8 mEq/L (3.5-5.1); SODIUM SERUM 136 mEq/L (136-145); WHITE BLOOD COUNT 7.3 Th/cmm (4.8-10.8)
--- NOTE | 2016-10-28 04:34 | Progress Notes ---
SUBJECTIVE: The patient is awake and alert. The patient is on IV antibiotics. The patient is on IV fluids. PHYSICAL EXAMINATION: VITAL SIGNS: Temperature 98.5, pulse 82, respiratory rate 19. CARDIOVASCULAR: S1, S2. RESPIRATORY: Clear. GASTROINTESTINAL: soft, +bs. LABORATORY DATA: Hemoglobin 8.9 ESR is 10. Chemistry: Sodium 135, GFR is more than 60, calcium 9.0. C-reactive protein 2.5. MICROBIOLOGY: no growth. RADIOLOGY: No new results. ASSESSMENT: 1. Alcohol intoxication resolved. 2. Hyponatremia. 3. Hyperglycemia. PLAN: Continue current medication. Obtain labs in a.m. Await culture results. JOB# [id number] MTDDarnell
[2016-10-28 07:29] LABS: % BASOPHILS 0.4 % (0.0-2.0); % EOSINOPHILS 2.8 % (0.0-5.0); % MONOCYTES 8.3 % (2.0-10.0); % NEUTROPHILS 67.5 % (40.0-80.0); HEMATOCRIT 40.3 % (39.0-49.0); HEMOGLOBIN 13.8 gm/dL (13.2-17.3); MEAN CELL VOLUME 86.9 fl (80-99); MEAN CORPUSCULAR HEMOGLOBIN 29.9 pg (26.0-30.0); MEAN CORPUSCULAR HGB CONC 34.4 pg (28.0-36.0); MEAN PLATELET VOLUME 7.8 fl; NEUTROPHILE ABSOLUTE 5.3 Th/cmm (1.8-8.0); PLATELET COUNT 212 Th/cmm (150-400); RED BLOOD COUNT 4.63 Mil/cmm (4.30-5.70); RED CELL DISTRIBUTION WIDTH 13.7 % (11.5-20.0); WHITE BLOOD COUNT 7.7 Th/cmm (4.8-10.8)
[2016-10-28 08:01] LABS: ANION GAP 7.1 (7.0-16.0); BUN - UREA NITROGEN 10 mg/dL (7-25); BUN/CREATININE RATIO 12.5; CALCIUM SERUM 8.6 mg/dL (8.6-10.3); CARBON DIOXIDE 27.7 mEq/L (21.0-31.0); CHLORIDE 106 mEq/L (98-107); CREATININE - SERUM 0.8 mg/dL (0.7-1.3); GLUCOSE 103 mg/dL (70-105); POTASSIUM SERUM 3.8 mEq/L (3.5-5.1); SODIUM SERUM 137 mEq/L (136-145)
[2016-10-28] MEDS: Hydrocodone/APAP 10 mg/325 mg Tab PO PRN ×2 (13:44)
--- NOTE | 2016-10-28 17:25 | Infectious Disease Prog Note ---
Infectious Disease Subjective - Review of Systems Service Date: 10/28/16 Events since last encounter: cc cellulitis hpi- pt schedule for discharge [facility] po x 7 days prescribed ros no fever o/e vss chest claer cellulitis l;ess dx etoh/cellulitis plan as above Infectious Disease Objective - Results Result Diagrams: 10/28/16 07:07 10/28/16 07:07 Recent Labs: Laboratory Last Values WBC 7.7 Th/cmm (4.8-10.8) 10/28/16 07:07 RBC 4.63 Mil/cmm (4.30-5.70) 10/28/16 07:07 Hgb 13.8 gm/dL (13.2-17.3) 10/28/16 07:07 Hct 40.3 % (39.0-49.0) 10/28/16 07:07 MCV 86.9 fl (80-99) 10/28/16 07:07 MCH 29.9 pg (26.0-30.0) 10/28/16 07:07 MCHC Differential 34.4 pg (28.0-36.0) 10/28/16 07:07 RDW 13.7 % (11.5-20.0) 10/28/16 07:07 Plt Count 212 Th/cmm (150-400) 10/28/16 07:07 MPV 7.8 fl 10/28/16 07:07 Neutrophils % 67.5 % (40.0-80.0) 10/28/16 07:07 Lymphocytes % 21.0 % (20.0-50.0) 10/28/16 07:07 Monocytes % 8.3 % (2.0-10.0) 10/28/16 07:07 Eosinophils % 2.8 % (0.0-5.0) 10/28/16 07:07 Basophils % 0.4 % (0.0-2.0) 10/28/16 07:07 Neutrophils (Manual) 83 % (40-80) H 10/24/16 08:56 Lymphocytes 6 % (20-50) L 10/24/16 08:56 Monocytes 11 % (2-10) H 10/24/16 08:56 Platelet Estimate ADEQUATE (NORMAL) 10/24/16 08:56 Platelet Morphology NORMAL (NORMAL) 10/24/16 08:56 RBC Morph Micro Appear NORMAL (NORMAL) 10/24/16 08:56 ESR 10 mm/hr (0-20) 10/27/16 14:15 PT 9.3 SECONDS (9.5-11.5) L 10/24/16 08:56 INR 0.94 (0.5-1.4) 10/24/16 08:56 PTT (Actin FS) 23.0 SECONDS (26.0-38.0) L 10/24/16 08:56 Specimen Source Arterial 10/24/16 13:55 Sample Site Right Radial 10/24/16 13:55 pH 7.44 (7.35-7.45) 10/24/16 13:55 pCO2 36.0 mmHg (35.0-45.0) 10/24/16 13:55 pO2 81.0 mmHg (80.0-100.0) 10/24/16 13:55 HCO3 24.5 mmol/L (20.0-26.0) 10/24/16 13:55 Base Excess 0.6 mmol/L (-3.0-3.0) 10/24/16 13:55 O2 Saturation 96.0 % (92.0-100.0) 10/24/16 13:55 Alonso Test Positive 10/24/16 13:55 Vent Rate NA 10/24/16 13:55 Inspired O2 21 10/24/16 13:55 Tidal Volume NA 10/24/16 13:55 PEEP NA 10/24/16 13:55 Pressure (ins/psv/peep) NA 10/24/16 13:55 Critical Value LZHANG 10/24/16 13:55 Sodium 137 mEq/L (136-145) 10/28/16 07:07 Potassium 3.8 mEq/L (3.5-5.1) 10/28/16 07:07 Chloride 106 mEq/L (98-107) 10/28/16 07:07 Carbon Dioxide 27.7 mEq/L (21.0-31.0) 10/28/16 07:07 Anion Gap 7.1 (7.0-16.0) 10/28/16 07:07 BUN 10 mg/dL (7-25) 10/28/16 07:07 Creatinine 0.8 mg/dL (0.7-1.3) 10/28/16 07:07 Est GFR ( Amer) > 60.0 ml/min (>90) 10/28/16 07:07 Est GFR (Non-Af Amer) > 60.0 ml/min 10/28/16 07:07 BUN/Creatinine Ratio 12.5 10/28/16 07:07 Glucose 103 mg/dL (70-105) 10/28/16 07:07 Whole Bld Lactic Acid 4.34 mmol/L (0.60-2.00) H* 10/24/16 13:17 Calcium 8.6 mg/dL (8.6-10.3) 10/28/16 07:07 Total Bilirubin 0.4 mg/dL (0.3-1.0) 10/24/16 08:56 AST 49 U/L (13-39) H 10/24/16 08:56 ALT 30 U/L (7-52) 10/24/16 08:56 Alkaline Phosphatase 100 U/L (34-104) 10/24/16 08:56 C-Reactive Protein 2.1 mg/dL (0.0-0.9) H 10/27/16 14:15 Total Protein 8.0 gm/dL (6.0-8.3) 10/24/16 08:56 Albumin 4.7 gm/dL (4.2-5.5) 10/24/16 08:56 Globulin 3.3 gm/dL 10/24/16 08:56 Albumin/Globulin Ratio 1.4 (1.0-1.8) 10/24/16 08:56 Urine Source CLEAN C 10/24/16 11:05 Urine Color YELLOW 10/24/16 11:05 Urine Clarity CLEAR (CLEAR) 10/24/16 11:05 Urine pH 5.5 10/24/16 11:05 Ur Specific Divide 1.025 (1.005-1.030) 10/24/16 11:05 Urine Protein 100 mg/dL (NEGATIVE) H 10/24/16 11:05 Urine Glucose (UA) NEGATIVE mg/dL (NEGATIVE) 10/24/16 11:05 Urine Ketones 15 mg/dL (NEGATIVE) H 10/24/16 11:05 Urine Blood MODERATE (NEGATIVE) H 10/24/16 11:05 Urine Nitrate NEGATIVE (NEGATIVE) 10/24/16 11:05 Urine Bilirubin NEGATIVE (NEGATIVE) 10/24/16 11:05 Urine Urobilinogen 0.2 E.U./dL (0.2 - 1.0) 10/24/16 11:05 Ur Leukocyte Esterase NEGATIVE (NEGATIVE) 10/24/16 11:05 Urine RBC 0-2 /hpf (0-5) H 10/24/16 11:05 Urine WBC 0-2 /hpf (0-5) 10/24/16 11:05 Ur Epithelial Cells OCCASIONAL /lpf (FEW) 10/24/16 11:05 Urine Bacteria OCCASIONAL /hpf (NONE SEEN) 10/24/16 11:05 Hyaline Casts 0-2 /lpf (0-2) H 10/24/16 11:05 Fine Granular Casts 0-2 /lpf (NONE SEEN) H 10/24/16 11:05 Ethyl Alcohol < 10 mg/dL (0-10) 10/26/16 06:12 - Physical Exam Vitals and I&O: Vital Signs Temp 97.6 F 10/28/16 16:00 Pulse 84 10/28/16 16:00 Resp 18 10/28/16 16:00 BP 140/92 10/28/16 16:30 Pulse Ox 97 10/28/16 16:00 Intake & Output 10/27/16 10/28/16 10/28/16 18:59 06:59 18:59 Intake Total 820 500 480 Balance 820 500 480 Intake: Intake, IV Amount 100 Levofloxacin 500mg/100mL 100 500 mg In 100 ml @ 100 mls/hr IV Q24HR [facility] Rx#: [id number] Oral 720 500 480 Other: # Voids 1,600 5 # Bowel Movements 0 Infectious Disease Assmt/Plan - Problem List Patient Problems: All Active Problems LEFT CHEEK TRAUMA POST BATTERY (Acute)
--- NOTE | 2016-10-29 00:32 | Progress Notes ---
SUBJECTIVE: The patient is awake and alert. The patient is requesting medication to poor sleep. The patient is on IV antibiotics. The patient is receiving IV fluids. OBJECTIVE: VITAL SIGNS: Temperature is 98.7, pulse of 90, blood pressure 134/94, respiratory rate 18, O2 saturation 93% on room air. CARDIOVASCULAR: S1, S2. RESPIRATORY: Clear. GASTROINTESTINAL: Soft. Positive bowel sounds. LABORATORY DATA: Hematology: WBC 7.3, hemoglobin 13.8, platelet count of 244, 18% lymphocytes. ESR is 10. Chemistry: Sodium 136, potassium 3.8, chloride 105, bicarbonate 29, anion gap 5.3, BUN 9, creatinine 0.9. Glucose is 133, calcium 8.9. ASSESSMENT: 1. Hyperglycemia. 2. Alcohol intoxication (resolved). 3. Delirium tremens (resolved). 4. Leukocytosis (resolved). 5. Transaminitis. 6. Left cheek cellulitis. 7. Penicillin allergy. 8. Nasal bone fracture (mildly displaced). PLAN: The patient will continue current medication and treatment. Obtain labs in a.m. terminal operations manager will do discharge planning. JOB# [id number] MTDD
--- NOTE | 2016-11-11 02:58 | Discharge Summary ---
DISCHARGE DIAGNOSES: 1. Hyperglycemia. 2. Alcohol intoxication (resolved). 3. Delirium tremens (resolved). 4. Leukocytosis (resolved). 5. Transaminitis. 6. Left cheek cellulitis. 7. Penicillin allergy. 8. Nasal bone fracture (mildly displaced). HOSPITAL COURSE: The patient is a 56-year-old white male ____ alcohol intoxication. The patient was admitted to ____ for alcohol intoxication, delirium tremens, leukocytosis, ____, transaminitis, nasal bone fracture (mildly displaced) and left cheek cellulitis. Consultation was obtained. Psychiatry consultation from Dr. Thomas ____ the patient has bipolar disorder. He is depressed and has chronic alcohol dependence. Recommendation from psychiatry for the patient to start Latuda ____ when medically cleared. Infectious Disease consultation obtained from Dr. Amandeep Rogers ____ left cheek cellulitis and recommended the patient ____ Levaquin. After improvement of the patient's alcohol intoxication and delirium tremens, the patient was discharged to [facility] ____ for 7 days along with Latuda and Mary and Aisha per recommendation of psychiatry ____. JOB# [id number]
== END 2016-10-28 16:30 | disposition home or self-care (01) | DRG 872 ==
LOC: ER 08:24 → TELE 12:48 → UNDOADMIN 10-25 12:48 → TELE 10-25 18:49
PROVIDERS: ADMIT Preventive Medicine Preventive Medicine/Occupational Environmental Medicine; ATTEND Preventive Medicine Preventive Medicine/Occupational Environmental Medicine
DX: A41.9 Sepsis, unspecified organism (principal); E87.2 Acidosis; F10.121 Alcohol abuse with intoxication delirium; E87.1 Hypo-osmolality and hyponatremia; L03.211 Cellulitis of face; R73.9 Hyperglycemia, unspecified; R74.0 Nonspecific elevation of levels of transaminase and lactic acid dehydrogenase [LDH]; F17.210 Nicotine dependence, cigarettes, uncomplicated; Y90.8 Blood alcohol level of 240 mg/100 ml or more; S00.81XA Abrasion of other part of head, initial encounter; X58.XXXA Exposure to other specified factors, initial encounter; Y93.89 Activity, other specified; Y92.89 Other specified places as the place of occurrence of the external cause; Y99.8 Other external cause status; S02.2XXA Fracture of nasal bones, initial encounter for closed fracture; F25.9 Schizoaffective disorder, unspecified; F31.9 Bipolar disorder, unspecified; Z88.0 Allergy status to penicillin
CPT/HCPCS: 36415-UA; 36600-90; 70486-TC; 71010-TC; 80048-TC; 80053-TC; 80320-TC; 81001-TC; 82803-TC; 83605; 85007-TC; 85025-TC; 85027-TC; 85610-TC; 85652-TC; 86141-TC; 87070-90; 90732; 93005; J1956; J2060; J2405; J3411; J3475; J7030; X6598; Z7610